=== PATIENT | female | born 1960 | race Caucasian/White ===

== ENCOUNTER 2023-08-12 18:09 | Emergency (ER) | payer MEDICARE, MEDICAID, SELFPAY ==
[2023-08-12 18:30] VITALS: BP 146/86; PULSE 128; RESP 16; TEMP 36.8; O2SAT 90
--- NOTE | 2023-08-12 18:45 | XRR_ITS ---
PROCEDURE INFORMATION: Exam: XR Chest Exam date and time: 08/12/2023 6:46 PM Age: 63 years old Clinical indication: Other: High blood pressure; Additional info: Chest pain TECHNIQUE: Imaging protocol: Radiologic exam of the chest. Views: 1 view. COMPARISON: CR XR chest 2V* [id number] 05/20/2023 12:35 PM FINDINGS: Lungs: Numerous calcified granulomas are noted throughout both lungs. I see no lung mass or infiltrate. Pleural spaces: Unremarkable. No pleural effusion. No pneumothorax. Heart/Mediastinum: Unremarkable. No cardiomegaly. Bones/joints: Unremarkable. XR/XR chest 1V portable [id number] IMPRESSION: No acute findings.
--- NOTE | 2023-08-12 18:45 | ECG_ITS ---
[facility] Test Date: 2023-08-12 Pat Name: Akua Galindo Department: Room: Gender: Female City Assessor: : 1960 Requested By: Asya Gonzalez Order Number: [id number] Adriane MD: Mitali Saldivar M.D. Measurements Intervals [place] Rate: 122 P: 84 [place]: 156 QRS: 82 QRSD: 70 T: 68 QT: 280 QTc: 400 Interpretive Statements SINUS TACHYCARDIA MODERATE ST DEPRESSION [0.05+ mV ST DEPRESSION] No previous ECG available for comparison Electronically Signed On 08-12-2023 19:05:30 CDT by Mitali Saldivar M.D. [id number]
--- NOTE | 2023-08-12 18:55 | ED_ITS ---
HPI - General Adult 2 General: Chief complaint: General Medical Stated complaint: High Blood Pressure Time Seen by Provider: 08/12/23 18:43 History of Present Illness: 63-year-old female with a history of tob acco dependence, COPD, chronic pain syndrome and chronic anxiety who presents to the emergency room with high blood pressure. A bit of a difficult historian. She is quite anxious. Chronic tell she has been having issues with her blood pressure for couple of weeks. She says this was since she took some sort of medication that her primary gave her that caused her to have sores all over and inside of her body. Today she was feeling dizzy and having some chest pressure and feeling quite anxious. She checked her blood pressure and it was elevated. Is unclear how high it was. On presentation here is 146/86 and she is a bit tachycardic. No fevers. No cough. She says she is not on oxygen at home. Oxygen saturation was 90% on presentation. On room air. Review of Systems 2 Narrative: Constitutional symptoms: Negative except as documented in HPI. Skin symptoms: Negative except as documented in HPI. Eye symptoms: Negative except as documented in HPI. ENMT symptoms: Negative except as documented in HPI. Respiratory symptoms: Negative except as documented in HPI. Cardiovascular symptoms: Negative except as documented in HPI. Gastrointestinal symptoms: Negative except as documented in HPI. Genitourinary symptoms: Negative except as documented in HPI. Musculoskeletal symptoms: Negative except as documented in HPI. Neurologic symptoms: Negative except as documented in HPI. Psychiatric symptoms: Negative except as documented in HPI. Endocrine symptoms: Negative except as documented in HPI. Physical Exam 2 Narrative: EXAM NARRATIVE: General: Alert, no acute distress. Skin: Warm, dry. Head: Normocephalic, atraumatic. Neck: Supple, trachea midline. Eye: Extraocular movements are intact. Ears, nose, mouth and throat: Oral mucosa moist. Cardiovascular: Regular rate and rhythm, Normal peripheral perfusion. Respiratory: coarse, scattered wheeze, mild increased wob. tachypnea, breath sounds are equal, Symmetrical chest wall expansion. Gastrointestinal: Soft, Nontender, Non distended, Normal bowel sounds. Musculoskeletal: Normal ROM, no deformity. Neurological: Alert and oriented to person, place, time, and situation, No focal neurological deficit observed. Psychiatric: Cooperative, appropriate mood & affect. Course 2 Vital Signs: Vital signs: Vital Signs Temperature 98.3 F 06/10/24 18:30 Pulse Rate 130 H 08/12/23 21:01 Respiratory Rate 20 H 08/12/23 21:01 Blood Pressure 167/78 08/12/23 21:01 Pulse Oximetry 98 08/12/23 21:01 Oxygen Delivery Me thod Room Air 08/12/23 21:01 MDM - General Adult Medical Decision Making Medical decision making: Differential diagnosis including but not limited to and based on the above HPI, review of systems and physical exam: Patient presents with hypertension: Essential hypertension. Stroke. acute coronary syndrome. kidney failure. congestive heart failure. anxiety Orders placed to evaluate differential diagnosis based on the above differential, HPI and physical exam these include an EKG to evaluate for any ischemic changes, chest x-ray to evaluate for cardiomegaly, and basic lab work including a troponin and a BMP look at renal function. Chest x-ray: Emphysematous changes. Numerous calcified granulomas. Hyperexpansion. No acute process. No cardiomegaly. No infiltrates. No pneumothorax. This was reviewed and interpreted by myself the ER physician. Lab Review: Laboratory results were reviewed and interpreted by myself the emergency room physician. Lab work is unremarkable. No renal failure. BUN and creatinine are 6 and 0.5. No leukocytosis. No anemia. Serial troponins are negative. Urinalysis is negative for infection. D-dimer is negative. No pulmonary embolism. I reviewed the patient's medical record. Reexamination: Patient remained stable. She has no increased work of breathing. She has been a little tachycardic while she has been here. No evidence of DVT or acute coronary syndrome. She does seem extremely anxious. Some Ativan was given. No signs of infection. Blood pressures remain normal to slightly hypertensive. We discussed these findings at length. She is happy to go home. Assessment and plan: Hypertension Tachycardia Anxiety Chronic pain syndrome ?IV Ativan. Home p.o. [place]. - Discharged home - Discussed findings and plan with patient. Answered any questions. - All laboratory values were reviewed and interpreted personally by myself, the ER physician - All imaging was reviewed and interpreted personally by myself, the ER physician. - Evaluation and treatment of this problem were appropriate in the emergency setting Lab Data 08/12/23 17:00 08/12/23 17:00 Radiology Impressions Chest X-Ray 08/12/23 18:45 IMPRESSION: No acute findings. Laboratory Results WBC 9.54 10^3/uL (3.29-11.43) 08/12/23 17:00 RBC 4.77 10^6/uL (3.85-5.65) 08/12/23 17:00 Hgb 15.50 g/dL (11.27-16.99) 08/12/23 17:00 Hct 45.0 % (36-47) 08/12/23 17:00 MCV 94.3 fl (85-98) 08/12/23 17:00 MCH 32.5 pg (27-33) 08/12/23 17:00 MCHC 34.4 g/dL (30-55) 08/12/23 17:00 RDW 12.8 % (12.1-15.1) 08/12/23 17:00 Plt Count 326 10^3/cmm (157-399) 08/12/23 17:00 MPV 10.0 fL (7.4-10.4) 08/12/23 17:00 Neut % (Auto) 80.2 % 08/12/23 17:00 Lymph % (Auto) 13.5 % 08/12/23 17:00 [place] % (Auto) 5.5 % 08/12/23 17:00 Eos % (Auto) 0.2 % 08/12/23 17:00 Baso % (Auto) 0.5 % 08/12/23 17:00 Neut # (Auto) 7.65 10^3/uL (1.8-7.7) 08/12/23 17:00 Lymph # (Auto) 1.3 10^3/uL (0.8-4.8) 08/12/23 17:00 [place] # (Auto) 0.5 10^3/uL (0.2-0.9) 08/12/23 17:00 Eos # (Auto) 0.0 10^3/uL (0.0-0.8) 08/12/23 17:00 Baso # (Auto) 0.1 10^3/uL (0.0-0.1) 08/12/23 17:00 Nucleated RBC % (auto) 0 % 08/12/23 17:00 Nucleated RBCs # 0.0 /100WBC 08/12/23 17:00 D-Dimer 0.35 ug/mLFEU (0-0.59) 08/12/23 17:00 Specimen Type Arterial 08/12/23 19:20 Sample Site Brachial, right 08/12/23 19:20 ABG pH 7.44 (7.35-7.45) 08/12/23 19:20 ABG pCO2 42.8 mmHg (35-45) 08/12/23 19:20 ABG pO2 65.9 mmHg (80.0-100.0) L 08/12/23 19:20 ABG HCO3 28.9 mmol/L (22-26) H 08/12/23 19:20 ABG O2 Saturation 94.9 08/12/23 19:20 ABG Base Excess 4.1 mmol/L (-2.0-2.0) H 08/12/23 19:20 Lorenzo Test Pos 08/12/23 19:20 A-a O2 Gradient 3.9 mmHg (5-10) L 08/12/23 19:20 Hematocrit 42.9 % (37-47) 08/12/23 19:20 Hgb O2 Saturation 90.1 % (95-100) L 08/12/23 19:20 Carboxyhemoglobin 4.6 %THgb (0.4-20.1) 08/12/23 19:20 Methemoglobin 0.4 % (0.4-1.5) 08/12/23 19:20 Total Hemoglobin 14.0 g/dL (12-16) 08/12/23 19:20 Sodium 138.0 mmol/L (131-143) 08/12/23 19:20 Potassium 4.1 mmol/L (3.5-5.0) 08/12/23 19:20 Glucose 113.0 mg/dL (70-115) 08/12/23 19:20 Ionized Calcium 1.2 mmol/L (1.1-1.4) 08/12/23 19:20 O2 Delivery Device Nc 08/12/23 19:20 O2 Liters/Min 3.0 % 08/12/23 19:20 Training And Development Coordinator ID [email or web address] 08/12/23 19:20 Sodium 137 mmol/L (136-145) 08/12/23 17:00 Potassium 4.3 mmol/L (3.5-5.1) 08/12/23 17:00 Chloride 97 mmol/L (98-107) L 08/12/23 17:00 Carbon Dioxide 28 mmol/L (22-29) 08/12/23 17:00 Anion Gap 16.3 (5-19) 08/12/23 17:00 BUN 6 mg/dL (8-23) L 08/12/23 17:00 Creatinine 0.5 mg/dL (0.5-0.9) 08/12/23 17:00 GFR Calculation 123.8 mL/min (90-130) 08/12/23 17:00 Glucose 113 mg/dL (65-115) 08/12/23 17:00 Calculated Osmolality 282 mOsm/kg (285-295) L 08/12/23 17:00 Calcium 10.1 mg/dL (8.5-10.5) 08/12/23 17:00 Total Bilirubin 0.4 mg/dL (0.15-1.2) 08/12/23 17:00 AST 17 U/L (0-32) 08/12/23 17:00 ALT 9 U/L (0-33) 08/12/23 17:00 Alkaline Phosphatase 67 U/L (35-105) 08/12/23 17:00 Troponin T Baseline 14 ng/L (0-10) H 08/12/23 17:00 Troponin T 120 Minute 13.17 ng/L (0-10) H 08/12/23 20:57 Delta Troponin T -0.83 ABS# (0-10) L 08/12/23 20:57 Total Protein 8.5 g/dL (6.6-8.7) 08/12/23 17:00 Albumin 5.2 g/dL (3.5-5.2) 08/12/23 17:00 Globulin 3.3 g/dL (1.3-4.6) 08/12/23 17:00 Urine Color Yellow (Yellow) 08/12/23 20:01 Urine Appearance Clear (CLEAR) 08/12/23 20:01 Urine pH 8 (5-7) H 08/12/23 20:01 Ur Specific Accident 1.015 (1.005-1.030) 08/12/23 20:01 Urine Protein Neg (Negative) 08/12/23 20:01 Urine Glucose (UA) Norm (Normal) 08/12/23 20:01 Urine Ketones Negative (Negative) 08/12/23 20:01 Urine Blood Neg (Negative) 08/12/23 20:01 Urine Nitrate Negative (Negative) 08/12/23 20:01 Urine Bilirubin Neg (Negative) 08/12/23 20:01 Prot Sulfosalicylic Acd Negative (Negative) 08/12/23 20:01 Urine Urobilinogen Neg mg/dL (Negative) 08/12/23 20:01 Ur Leukocyte Esterase Negative (Negative) 08/12/23 20:01 Urine RBC None /hpf (0-2) 08/12/23 20:01 Urine WBC None /hpf (0-5) 08/12/23 20:01 Ur Squamous Epith Cells None /hpf (0-5) 08/12/23 20:01 Amorphous Sediment Not Reportable 08/12/23 20:01 Urine Bacteria None /hpf (NONE) 08/12/23 20:01 Urine Opiates Screen Positive ng/mL (Negative) H 08/12/23 20:01 Ur Barbiturates Screen Negative ng/mL (Negative) 08/12/23 20:01 Ur Phencyclidine Scrn Negative ng/mL (Negative) 08/12/23 20:01 Ur Amphetamines Screen Negative ng/mL (Negative) 08/12/23 20:01 U Benzodiazepines Scrn Negative ng/mL (Negative) 08/12/23 20:01 Urine Cocaine Screen Negative ng/mL (Negative) 08/12/23 20:01 U Marijuana (THC) Screen Negative ng/mL (Negative) 08/12/23 20:01 All radiology interpretation(s) finalized by discharge Discharge Plan Discharge Patient Disposition: Home Clinical Impression: Hypertension Qualifiers: Hypertension type: primary hypertension Qualified Code(s): I10 - Essential (primary) hypertension Condition: Stable Discharge Orders: Discharge ED (Routine); Ordered 08/12/23 Ordered By: Asya Sy Referrals: Jairo Fields DO [Primary Care Provider] - 1-3 days Discharge Diet: Usual diet Discharge Activity: Increase activity as tolerated Patient Instructions: Hypertension (ED) Activity Restrictions/Additional Instructions: Thank you for choosing [facility] for your healthcare needs today. Please realize this is an emergency room and that we are providing you with a medical screening exam and this may not be complete and all inclusive of all the testing and or work up that you may need to determine your ailment or severity of your illness. You have been screened and evaluated and felt safe for discharge. Health conditions do change or evolve sometimes and as such it is important that you follow up with your Primary Doctor to be re checked, 3-5 days is a general good time frame for follow up. You are always welcome to return to the ED for re assessment if your symptoms are worsening or you have new concerns Coding Level of Care Code ED Molder Fitting for Latisha Thomas
[2023-08-12 19:20] LABS: Basophils # 0.1 10^3/uL (0.0-0.1); Basophils % 0.5 %; Eosinophils % 0.2 %; Lymphocytes # 1.3 10^3/uL (0.8-4.8); Lymphocytes % 13.5 %; Mean Corpuscular HGB Conc 34.4 g/dL (30-55); Mean Corpuscular Hemoglobin 32.5 pg (27-33); Mean Corpuscular Volume 94.3 fl (85-98); Monocytes # 0.5 10^3/uL (0.2-0.9); Monocytes % 5.5 %; Neutrophils # 7.65 10^3/uL (1.8-7.7); Neutrophils % 80.2 %; Nucleated Red Blood Cells % 0 %; Platelet Count 326 10^3/cmm (157-399); Red Blood Count 4.77 10^6/uL (3.85-5.65); Red Cell Distribution Width 12.8 % (12.1-15.1); White Blood Count 9.54 10^3/uL (3.29-11.43)
[2023-08-12 19:28] LABS: ABG PCO2 42.8 mmHg (35-45); ABG PH Result 7.44 (7.35-7.45); Alveolar-Arterial Oxygen Gradi 3.9 mmHg (5-10); Arterial Blood Gas Hematocrit 42.9 % (37-47); Base Excess ABG 4.1 mmol/L (-2.0-2.0); Blood Gas Allen Test Pos; Blood Gas Sample Site Brachial, right; Blood Gas Sample Type Arterial; Carboxyhemoglobin 4.6 %THgb (0.4-20.1); HCO3 ABG 28.9 mmol/L (22-26); HGB O2 Sat 90.1 % (95-100); Ionized Calcium Level - ABG 1.2 mmol/L (1.1-1.4); Methemoglobin 0.4 % (0.4-1.5); Oxygen Device NC; Oxygen Saturation ABG 94.9; PO2 ABG 65.9 mmHg (80.0-100.0); Potassium Level - ABG 4.1 mmol/L (3.5-5.0)
[2023-08-12 19:30] LABS: D Dimer 0.35 ug/mLFEU (0-0.59)
[2023-08-12 19:32] LABS: Troponin(5th) Baseline 14 ng/L (0-10)
[2023-08-12 19:34] LABS: Alanine Aminotransferase 9 U/L (0-33); Albumin Level 5.2 g/dL (3.5-5.2); Alkaline Phosphatase 67 U/L (35-105); Anion Gap 16.3 (5-19); Aspartate Amino Transferase 17 U/L (0-32); Blood Urea Nitrogen 6 mg/dL (8-23); Calcium 10.1 mg/dL (8.5-10.5); Carbon Dioxide 28 mmol/L (22-29); Chloride 97 mmol/L (98-107); Globulin 3.3 g/dL (1.3-4.6); Glomerular Filtration Rate 123.8 mL/min (90-130); Glucose 113 mg/dL (65-115); Osmolality Calculated 282 mOsm/kg (285-295); Potassium 4.3 mmol/L (3.5-5.1); Sodium 137 mmol/L (136-145); Total Bilirubin 0.4 mg/dL (0.15-1.2); Total Protein 8.5 g/dL (6.6-8.7)
[2023-08-12 19:35] VITALS: BP 135/86; PULSE 112; RESP 18; O2SAT 98
[2023-08-12 20:14] VITALS: RESP 18
[2023-08-12 20:18] LABS: Amphetamines Screen Urine Negative (Negative); Barbiturates Screen Urine Negative (Negative); Benzodiazepines Screen Urine Negative (Negative); Cocaine Screen Urine Negative (Negative); Opiate Screen Urine Positive (Negative); PCP Screen Urine Negative (Negative); Specific Gravity, Urine 1.015 (1.005-1.030); THC Screen Urine Negative (Negative); Urine Appearance Clear (CLEAR); Urine Color Yellow (Yellow); pH Urine 8 (5-7)
[2023-08-12 20:19] LABS: Add Urine Culture? No; Bilirubin Urine Neg (Negative); Blood Urine Neg (Negative); Glucose Urine UA Norm (Normal); Ketones Urine Negative (Negative); Leukocyte Esterase Urine Negative (Negative); Nitrate Urine Negative (Negative); Protein Urine Neg (Negative); Sulfosalicylic Acid Urine Negative (Negative); Urobilinogen Urine Neg (Negative)
[2023-08-12 20:38] VITALS: BP 134/99; PULSE 129; RESP 18; O2SAT 99
--- NOTE | 2023-08-12 20:45 | ECG_ITS ---
[facility] Test Date: 2023-08-12 Pat Name: Akua Galindo Department: Room: Gender: Female Spare Person: : 1960 Requested By: Asya Gonzalez Order Number: [id number] Adriane MD: Matthew Irby M.D. Measurements Intervals [place] Rate: 125 P: 85 [place]: 157 QRS: 77 QRSD: 69 T: 76 QT: 277 QTc: 401 Interpretive Statements SINUS TACHYCARDIA Compared to ECG 08/12/2023 18:29:27 ST (T wave) deviation no longer present Electronically Signed On 08-13-2023 17:24:14 CDT by Matthew Irby M.D. [id number]
[2023-08-12 21:01] VITALS: BP 167/78; PULSE 130; RESP 20; O2SAT 98
[2023-08-12] MEDS: HYDROcodone-acetaminophen 10-325 mg Tablet 1 TAB PO (21:02)
[2023-08-12 21:21] LABS: Troponin 5 2HR 13.17 ng/L (0-10); Troponin 5 2HR Delta -0.83 ABS# (0-10)
[2023-08-12] MEDS: LORazepam 2 mg/mL INJ 10 mL MDV 1 MG IV (21:43)
[2023-08-12 22:02] VITALS: BP 139/78; PULSE 110; RESP 16; O2SAT 93
== END 2023-08-12 22:03 | disposition home or self-care (01) ==
PROVIDERS: Emergency Provider Emergency Medicine; PCP Internal Medicine
DX: I10 Essential (primary) hypertension (principal); Z87.891 Personal history of nicotine dependence; J44.9 Chronic obstructive pulmonary disease, unspecified
CPT/HCPCS: 36415; 36600; 71045; 80051; 80053; 80306; 81001; 82330; 82805; 84484; 85025; 85378; 93005; 96374; 99285; J2060

== ENCOUNTER 2024-09-30 06:00 | Outpatient (CLI) | payer MEDICARE, MEDICAID, SELFPAY | END 2024-09-30 06:01 | disposition home or self-care (01) | LOC: RAD 10-06 17:32 | PROVIDERS: PCP Internal Medicine; Visit Provider Student in an Organized Health Care Education/Training Program | DX: M47.812 Spondylosis without myelopathy or radiculopathy, cervical region (principal); M47.816 Spondylosis without myelopathy or radiculopathy, lumbar region; M25.78 Osteophyte, vertebrae; R93.7 Abnormal findings on diagnostic imaging of other parts of musculoskeletal system; M50.323 Other cervical disc degeneration at C6-C7 level; M99.61 Osseous and subluxation stenosis of intervertebral foramina of cervical region | CPT/HCPCS: 72052; 72114 ==

== ENCOUNTER 2024-10-15 10:38 | Outpatient (CLI) | payer MEDICARE, MEDICAID, SELFPAY ==
--- NOTE | 2024-10-15 10:47 | CT_ITS ---
WS: [id number] LDCT LUNG CANCER SCREENING TECHNIQUE: Noncontrast CT of the chest with coronal and sagittal reformatted images. CLINICAL INFORMATION: HX OF TOBACCO USE COMPARISON: 2012 DLP: 44.81 mGy.cm DIvol: Mean CTDIvol: 0.60 (mGy) All CT scans at [facility] use at least one of these dose optimization techniques: automated exposure control; mA and/or kV adjustment per patient size (includes targeted exams where dose is matched to clinical indication); or iterative reconstruction. FINDINGS: Advanced chronic emphysematous changes. Fibrosis in the lung apices. Innumerable calcified granulomas throughout both lungs. Pleural parenchymal scarring with bronchiectasis RIGHT lower lobe laterally. Pleural parenchymal scarring in the LEFT upper lobe anteriorly. There is a areas of parenchymal scarring LEFT upper lobe anteriorly. No suspicious pulmonary parenchymal normalities. 3.5 cm ascending thoracic aorta. Calcified mediastinal and hilar lymph nodes. No axillary lymphadenopathy. Hepatic granulomas. Splenic granulomas. Tiny esophageal hiatal hernia. Air-fluid level in the stomach. Mild thoracic kyphosis. CT/CT lung screening [id number] IMPRESSION: LUNG-RADS: 2-Benign Appearance or Behavior FOLLOW UP: 12 Month: Continue annual screening with LDCT
== END 2024-10-15 10:39 | disposition home or self-care (01) ==
LOC: RAD 10:39
PROVIDERS: PCP Internal Medicine; Visit Provider Nurse Practitioner Family
DX: Z12.2 Encounter for screening for malignant neoplasm of respiratory organs (principal); Z87.891 Personal history of nicotine dependence
CPT/HCPCS: 71271